=== PATIENT | female | born 1975 | race Hispanic/Latino ===

== ENCOUNTER 2018-08-19 14:40 | Emergency (ER) | payer SELFPAY ==
[~2018-08-19 14:40] MED LIST: ISOVUE-370 76%-LOCM 1 ML ONE
--- NOTE | 2018-08-19 15:54 | RAD ---
ACUTE ABDOMINAL SERIES: 08/19/2018 PROVIDED CLINICAL HISTORY: Constipation. FINDINGS: Cardiac and mediastinal silhouette is within normal limits. The lungs appear clear. No pleural flui d or pneumothorax apparent. Supine and upright abdominal radiographs demonstrate a nonspecific bowel gas pattern. There is consp icuous colonic and rectal fecal retention. No evidence for free air. No radiographically apparent u rinary tract calcifications. IMPRESSION: Conspicuous colonic and rectal fecal retention. POS: T[facility]
[2018-08-19 18:33] LABS: #Monocytes 0.5 thou/uL (0.11-0.59); #Neutrophils 7.2 thou/uL (1.40-6.50); %Eosinophils 0.3 % (0.0-10.0); %Lymphocytes 20.3 % (21.0-51.0); %Monocytes 5.1 % (0.0-10.0); %Neutrophils 74.3 % (42.0-75.0); Hemoglobin 13.4 g/dL (12.0-16.0); Mean Corpuscular HGB CONC 31.6 g/dL (32.0-36.0); Mean Corpuscular Hemoglobin 25.3 pg (27.0-31.0); Mean Corpuscular Volume 80.1 fL (78.0-98.0); Mean Platelet Volume 8.9 fL (7.4-10.4); Platelet Count 304 thou/uL (130-400); RBC Distribution Width 13.1 % (11.5-14.5); Red Blood Cell (RBC) Count 5.29 mill/uL (4.20-5.40); White Blood Cell (WBC) Count 9.7 thou/uL (4.8-10.8)
[2018-08-19 18:43] LABS: BHCG - Serum Negative (NEGATIVE); Pregs Control Background? CLEAR/WHITE (CLR/WHITE); Pregs Control Bar Appear? YES (CONTROL BAR)
[2018-08-19 18:54] LABS: ALT (SGPT) 11 U/L (8-55); AST (SGOT) 16 U/L (5-34); Albumin 4.7 g/dL (3.5-5.0); Alkaline Phosphatase 88 U/L (40-150); Anion Gap 14 mmol/L (10-20); BUN (Urea Nitrogen) 17 mg/dL (7.0-18.7); Bilirubin, Total 0.4 mg/dL (0.2-1.2); Calc. Creatinine Clearance 0 mL/min (70-130); Calcium 9.4 mg/dL (7.8-10.44); Carbon Dioxide 20 mmol/L (22-29); Chloride 107 mmol/L (98-107); Estimated GFR-MDRD 49; Globulin 3.7 g/dL (2.4-3.5); Glucose 96 mg/dL (70-105); Potassium 3.7 mmol/L (3.5-5.1); Protein, Total 8.4 g/dL (6.0-8.3); Sodium 137 mmol/L (136-145)
--- NOTE | 2018-08-19 19:49 | CT ---
ABDOMEN AND PELVIS CT WITH CONTRAST 08/19/18 INDICATION: Emergency exam, rectal pain, nausea. FINDINGS: The visualized lung bases reveal mild patchy density that may relate to respiratory motion artifact a nd/or atelectasis. There is a small hypodensity, posterior segment right hepatic lobe, too small to d efinitively characterize. Spleen is unremarkable. No peripancreatic inflammation. No evidence of hydr onephrosis or adrenal mass. Bowel is incompletely assessed without enteric contrast. Soft tissue fullness at the level of the ano rectal verge is incompletely evaluated on the basis of absence of enteric contrast. There is a large volume of retained fecal material at this level indicating constipation. Abdominal aorta is normal in caliber. No free air. There is heterogeneity of the uterus and adnexa. The right adnexa is asymmetri yuly prominent in volume with a complex appearance, incompletely evaluated. No acute osseous abnorma lity. IMPRESSION: 1. Limited evaluation of the bowel without enteric contrast. There is a prominent volume of michaela ined fecal material at the rectosigmoid colon as well as soft tissue prominence at the anorectal verg e. Recommend correlation with physical exam. 2. Heterogeneity and prominent volume of the right adnexa. Dedicated pelvic ultrasound is recomm ended to exclude the possibility of an adnexal mass. 3. Small hypodensity, posterior segment right hepatic lobe, too small to further characterize. C onsider imaging followup to document size stability. Currently, finding measures approximately 7 mm. Code T POS: ANTHONY
[2018-08-19 20:31] LABS: Bilirubin Negative (Negative); Blood, Urine Negative (Negative); Clarity CLOUDY (Clear); Glucose, Urine (Dipstick) Negative (Negative); Leukocyte Small (Negative); Nitrite Negative (Negative); Protein, Urine (Dipstick) Negative (Neg-Trace)
[2018-08-19 20:33] LABS: Bacteria/HPF None Seen HPF (None Seen); Hyaline Casts/LPF 7-10 HYALINE CAST LPF (0-3 Hyaline); Pathc Cast-AUWi Flag 2.18 (0-2.49); RBC/HPF 0-3 HPF (0-3); Squamous Epithelial 21-50 HPF (0-3)
[2018-08-19 20:35] LABS: Specific Gravity, Urine Greater than 1.060 (1.002-1.036)
== END 2018-08-19 21:00 | disposition home or self-care (01) ==
LOC: ERS 14:40
DX: K59.00 Constipation, unspecified (principal)
CPT/HCPCS: 74022; 74177; 80053; 81003; 81015; 84703; 85025; Q9966